=== PATIENT | female | born 1985 | race Two or more races ===

== ENCOUNTER 2018-07-12 08:48 | Emergency (ER) | payer MEDICAID ==
[~2018-07-12] VITALS: Ht 157.5 cm; Wt 49.9 kg
[~2018-07-12 08:48] MED LIST: LAMO25TA2 PO; PROPANOLOL
[2018-07-12] MEDS ORDERED: LORazepam 2MG/ML-1ML VIAL IV ONE (09:45)
[2018-07-12 09:50] LABS: Basophils # (auto) 0 uL; Basophils % (auto) 0.2 % (0.0-2.0); Eosinophils # (auto) 0.1 uL; Eosinophils % (auto) 2.8 % (0.0-7.0); Hematocrit 37.7 % (36.0-46.0); Hemoglobin 12.7 g/dL (12.2-16.2); Lymphocytes # (auto) 1.3 uL; Lymphocytes % (auto) 24.3 % (10.0-50.0); Mean Corpuscular Hemoglobin 30.9 pg (28.0-32.0); Mean Corpuscular Hgb Conc. 33.6 g/dL (32.0-36.0); Mean Corpuscular Volume 91.9 fL (80.0-100.0); Monocytes # (auto) 0.3 uL; Monocytes % (auto) 5.2 % (0.0-12.0); Neutrophils # (auto) 3.6 uL; Neutrophils % (auto) 67.5 % (37.0-80.0); Nucleated Red Blood Cells % 0.1 %; Platelet Count (auto) 236 10^3/uL (140-450); Red Cell Distribution Width 12.4 % (11.8-14.3); White Blood Cell 5.4 10^3/uL (4.4-10.8)
[2018-07-12 12:11] VITALS: BP 128/62
== END 2018-07-12 12:11 | disposition home or self-care (01) ==
LOC: EDBD 08:48 → ER 08:52
DX: G40.909 Epilepsy, unspecified, not intractable, without status epilepticus (principal); Z86.73 Personal history of transient ischemic attack (TIA), and cerebral infarction without residual deficits
CPT/HCPCS: 36415; 70450; 85025; 96374; 99285; J2060

== ENCOUNTER 2018-12-14 20:29 | Emergency (ER) | payer MEDICAID ==
[~2018-12-14] VITALS: Ht 170.2 cm; Wt 49.9 kg
[2018-12-14] MEDS ORDERED: LEVETIRACETAM INJ 1,000 MG in D5W 5% 100 ML IV ONE (22:30)
[2018-12-14 22:47] LABS: Basophils # (auto) 0 uL; Basophils % (auto) 0.2 % (0.0-2.0); Eosinophils # (auto) 0.1 uL; Eosinophils % (auto) 1.2 % (0.0-7.0); Hematocrit 36.6 % (36.0-46.0); Hemoglobin 12.5 g/dL (12.2-16.2); Lymphocytes # (auto) 1.6 uL; Lymphocytes % (auto) 22.3 % (10.0-50.0); Mean Corpuscular Hemoglobin 31.6 pg (28.0-32.0); Mean Corpuscular Hgb Conc. 34.2 g/dL (32.0-36.0); Mean Corpuscular Volume 92.3 fL (80.0-100.0); Monocytes # (auto) 0.4 uL; Neutrophils # (auto) 5.2 uL; Neutrophils % (auto) 70.3 % (37.0-80.0); Platelet Count (auto) 249 10^3/uL (140-450); Red Blood Cells 3.97 10^6/uL (4.0-5.20); Red Cell Distribution Width 12.4 % (11.8-14.3); White Blood Cell 7.4 10^3/uL (4.4-10.8)
[2018-12-14] MEDS ORDERED: LEVETIRACETAM 500 MG/5ML INJ IV ONE (22:56)
[2018-12-14 22:58] LABS: Albumin 3.7 g/dL (3.4-5.0); Calcium 8.3 mg/dL (8.5-10.1)
[2018-12-14 23:01] LABS: Bilirubin, Total 0.2 mg/dL (0.2-1.0); Total Protein 7.5 g/dL (6.4-8.2)
[2018-12-14 23:32] VITALS: BP 138/78
[2018-12-14 23:32] LABS: Urine Bacteria FEW /hpf (None Seen); Urine Blood Negative /uL (Negative); Urine Specific Gravity 1.016 (1.001-1.035); Urine WBC 1 /hpf (0 - 5)
[2018-12-14 23:42] LABS: Alcohol, Urine < 3.0 mg/dL (0-5); Amphetamine Screen, Urine NEGATIVE (NEGATIVE); Barbiturate Scree,Urine NEGATIVE (NEGATIVE); Benzodiazephine Screen, Urine NEGATIVE (NEGATIVE); Cannabinoid Screen, Urine NEGATIVE (NEGATIVE); Cocaine Screen, Urine NEGATIVE (NEGATIVE); Opiate Scree,Urine NEGATIVE (NEGATIVE); Phencyclidine Screen, Urine NEGATIVE (NEGATIVE)
== END 2018-12-15 01:02 | disposition home or self-care (01) ==
LOC: EDBD 20:29 → ER 20:36
DX: G40.909 Epilepsy, unspecified, not intractable, without status epilepticus (principal); Z86.73 Personal history of transient ischemic attack (TIA), and cerebral infarction without residual deficits
CPT/HCPCS: 36415; 70450; 80053; 80307; 81001; 82542; 84702; 85025; 96365; 99284; J1953; J7060

== ENCOUNTER 2019-01-20 21:48 | Emergency (ER) | payer MEDICAID ==
[~2019-01-20] VITALS: Ht 157.5 cm; Wt 54.4 kg
[2019-01-20 22:45] LABS: Basophils # (auto) 0 uL; Basophils % (auto) 0.3 % (0.0-2.0); Eosinophils # (auto) 0.2 uL; Eosinophils % (auto) 2.4 % (0.0-7.0); Hematocrit 40.2 % (36.0-46.0); Hemoglobin 13.7 g/dL (12.2-16.2); Lymphocytes # (auto) 1.7 uL; Lymphocytes % (auto) 27.3 % (10.0-50.0); Mean Corpuscular Hemoglobin 31.6 pg (28.0-32.0); Mean Corpuscular Hgb Conc. 34.1 g/dL (32.0-36.0); Mean Corpuscular Volume 92.8 fL (80.0-100.0); Monocytes # (auto) 0.4 uL; Monocytes % (auto) 6.9 % (0.0-12.0); Neutrophils % (auto) 63.1 % (37.0-80.0); Nucleated Red Blood Cells % 0.1 %; Platelet Count (auto) 272 10^3/uL (140-450); Red Blood Cells 4.34 10^6/uL (4.0-5.20); Red Cell Distribution Width 12.4 % (11.8-14.3); White Blood Cell 6.3 10^3/uL (4.4-10.8)
[2019-01-20 23:03] LABS: BUN/Creatinine Ratio 12.9; Calcium 8.6 mg/dL (8.5-10.1); Potassium 3.6 mmol/L (3.5-5.1)
[2019-01-20 23:06] LABS: Bilirubin, Total 0.3 mg/dL (0.2-1.0)
[2019-01-21] VITALS: BP 144/82
== END 2019-01-21 01:03 | disposition left against medical advice (07) ==
LOC: EDBD 21:48 → EDSEX 21:48 → ER 21:52
DX: R56.9 Unspecified convulsions (principal); Z86.73 Personal history of transient ischemic attack (TIA), and cerebral infarction without residual deficits; Z53.29 Procedure and treatment not carried out because of patient's decision for other reasons
CPT/HCPCS: 36415; 80053; 82542; 85025

== ENCOUNTER 2019-08-03 07:38 | Emergency (ER) | payer MEDICAID ==
[~2019-08-03] VITALS: Ht 157.5 cm; Wt 51.7 kg
[2019-08-03 08:50] LABS: Urine Bacteria FEW /hpf (None Seen); Urine Blood Negative /uL (Negative); Urine Hyaline Cast FEW /lpf (0 - 2); Urine Mucus FEW (None Seen); Urine Specific Gravity 1.016 (1.001-1.035); Urine WBC 3 /hpf (0 - 5)
[2019-08-03 09:19] VITALS: BP 91/55
== END 2019-08-03 10:50 | disposition home or self-care (01) ==
LOC: EDBD 07:38 → ER 07:38
DX: G40.909 Epilepsy, unspecified, not intractable, without status epilepticus (principal); R42 Dizziness and giddiness
CPT/HCPCS: 70450; 81001

== ENCOUNTER 2019-09-25 09:08 | Emergency (ER) | payer MEDICAID ==
[~2019-09-25] VITALS: Ht 157.5 cm; Wt 49.9 kg
[2019-09-25] MEDS ORDERED: LEVETIRACETAM INJ 500 MG in D5W 5% 100 ML IV ONE (09:30)
[2019-09-25 09:42] LABS: Basophils # (auto) 0 uL; Basophils % (auto) 0.1 % (0.0-2.0); Eosinophils # (auto) 0.1 uL; Eosinophils % (auto) 1.3 % (0.0-7.0); Hemoglobin 12.9 g/dL (12.2-16.2); Mean Corpuscular Hemoglobin 31.8 pg (28.0-32.0); Mean Corpuscular Volume 93.4 fL (80.0-100.0); Monocytes # (auto) 0.3 uL; Monocytes % (auto) 5.6 % (0.0-12.0); Neutrophils # (auto) 3.4 uL; Platelet Count (auto) 215 10^3/uL (140-450); Red Blood Cells 4.07 10^6/uL (4.0-5.20); Red Cell Distribution Width 12.7 % (11.8-14.3); White Blood Cell 4.7 10^3/uL (4.4-10.8)
[2019-09-25 10:01] LABS: Alanine Aminotransferase 22 U/L (13-56); Albumin 3.7 g/dL (3.4-5.0); Anion Gap 7 (5-15); BUN/Creatinine Ratio 15.9; Blood Urea Nitrogen 13 mg/dL (7-18); Calcium 8.2 mg/dL (8.5-10.1); Carbon Dioxide 21 mmol/L (21-32); Chloride 112 mmol/L (98-107); GFR African American 103 mL/min; GFR Non-African American 85 mL/min; Glucose 88 mg/dL (74-106); Potassium 4.1 mmol/L (3.5-5.1); Sodium 140 mmol/L (136-145)
[2019-09-25 10:06] LABS: Alkaline Phosphatase 69 U/L (45-117); Aspartate Aminotransferase 9 U/L (15-37); Bilirubin, Total 0.4 mg/dL (0.2-1.0); Total Protein 7.5 g/dL (6.4-8.2)
[2019-09-25 10:51] LABS: Urine Bacteria NONE SEEN /hpf (None Seen); Urine Blood Negative /uL (Negative); Urine Mucus FEW (None Seen); Urine Specific Gravity 1.012 (1.001-1.035); Urine WBC 1 /hpf (0 - 5)
[2019-09-25 11:04] LABS: Alcohol, Urine < 3.0 mg/dL (0-5); Amphetamine Screen, Urine NEGATIVE (NEGATIVE); Barbiturate Scree,Urine NEGATIVE (NEGATIVE); Benzodiazephine Screen, Urine POSITIVE (NEGATIVE); Cocaine Screen, Urine NEGATIVE (NEGATIVE); Opiate Scree,Urine NEGATIVE (NEGATIVE); Phencyclidine Screen, Urine NEGATIVE (NEGATIVE)
[2019-09-25 11:12] LABS: Cannabinoid Screen, Urine POSITIVE (NEGATIVE)
[2019-09-25 12:12] VITALS: BP 95/58
== END 2019-09-25 12:16 | disposition home or self-care (01) ==
LOC: EDBD 09:08 → ER 09:08
DX: R56.9 Unspecified convulsions (principal); F12.10 Cannabis abuse, uncomplicated; G43.909 Migraine, unspecified, not intractable, without status migrainosus; G89.29 Other chronic pain; M54.9 Dorsalgia, unspecified
CPT/HCPCS: 36415; 70450; 80053; 80307; 81001; 84484; 85025; 96365; 99284; J1953; J7060

== ENCOUNTER 2019-10-12 09:25 | Emergency (ER) | payer MEDICAID ==
[~2019-10-12] VITALS: Ht 157.5 cm; Wt 52.2 kg
[2019-10-12] MEDS ORDERED: LIDOCAINE 1% (LOCAL ANESTH.) PF 5ml SDV ID ONE (10:00)
[2019-10-12] MEDS ORDERED: NEOMYCIN-BACITRACIN-POLYM UNITDOSE PKG TOP OINT TOP ONE (10:00)
[2019-10-12 10:21] LABS: Basophils # (auto) 0 uL; Basophils % (auto) 0.3 % (0.0-2.0); Eosinophils # (auto) 0 uL; Eosinophils % (auto) 0.6 % (0.0-7.0); Hematocrit 37.8 % (36.0-46.0); Hemoglobin 12.9 g/dL (12.2-16.2); Lymphocytes # (auto) 1.2 uL; Lymphocytes % (auto) 14.6 % (10.0-50.0); Mean Corpuscular Hgb Conc. 34.2 g/dL (32.0-36.0); Mean Corpuscular Volume 93.3 fL (80.0-100.0); Monocytes # (auto) 0.4 uL; Monocytes % (auto) 5.3 % (0.0-12.0); Neutrophils # (auto) 6.6 uL; Neutrophils % (auto) 79.2 % (37.0-80.0); Nucleated Red Blood Cells % 0.1 %; Platelet Count (auto) 269 10^3/uL (140-450); Red Blood Cells 4.05 10^6/uL (4.0-5.20); Red Cell Distribution Width 12.6 % (11.8-14.3); White Blood Cell 8.3 10^3/uL (4.4-10.8)
[2019-10-12 10:37] LABS: Albumin 3.8 g/dL (3.4-5.0); Calcium 8.8 mg/dL (8.5-10.1); Potassium 4.1 mmol/L (3.5-5.1)
[2019-10-12 10:41] LABS: BUN/Creatinine Ratio 13.6; Bilirubin, Total 0.4 mg/dL (0.2-1.0); Total Protein 7.5 g/dL (6.4-8.2)
[2019-10-12] MEDS ORDERED: LIDOCAINE 1% HCL (LOCAL ANESTH.) INJ 20ML MDV ONE (10:49)
[2019-10-12 13:52] LABS: Alcohol, Urine < 3.0 mg/dL (0-5); Amphetamine Screen, Urine NEGATIVE (NEGATIVE); Cannabinoid Screen, Urine POSITIVE (NEGATIVE)
[2019-10-12 13:55] LABS: Barbiturate Scree,Urine NEGATIVE (NEGATIVE); Benzodiazephine Screen, Urine POSITIVE (NEGATIVE); Cocaine Screen, Urine NEGATIVE (NEGATIVE); Opiate Scree,Urine NEGATIVE (NEGATIVE); Phencyclidine Screen, Urine NEGATIVE (NEGATIVE)
[2019-10-12 14:00] VITALS: BP 97/62
== END 2019-10-12 14:12 | disposition home or self-care (01) ==
LOC: EDBD 09:25 → ER 09:30
DX: S01.81XA Laceration without foreign body of other part of head, initial encounter (principal); S09.8XXA Other specified injuries of head, initial encounter; R56.9 Unspecified convulsions; M54.2 Cervicalgia; Z86.73 Personal history of transient ischemic attack (TIA), and cerebral infarction without residual deficits; X58.XXXA Exposure to other specified factors, initial encounter; Y93.89 Activity, other specified; Y92.89 Other specified places as the place of occurrence of the external cause; Y99.8 Other external cause status
CPT/HCPCS: 12013; 36415; 70450; 72125; 80053; 80307; 84702; 85025; 99284; J2001

== ENCOUNTER 2019-10-17 12:46 | Emergency (ER) | payer MEDICAID ==
[~2019-10-17] VITALS: Ht 157.5 cm; Wt 52.2 kg
[2019-10-17 16:00] VITALS: BP 133/77
[2019-10-17] MEDS ORDERED: HYDROcodone-ACET 10/325MG TAB PO ONE (16:00)
[2019-10-17] MEDS ORDERED: NEOMYCIN-BACITRACIN-POLYM UNITDOSE PKG TOP OINT TOP ONE (16:21)
[2019-10-17] MEDS ORDERED: NEOMYCIN-BACITRACIN-POLYM 15GM TOP OINT TOP SCH (22:00)
== END 2019-10-17 16:47 | disposition home or self-care (01) ==
LOC: EDBD 12:46 → ER 12:46
DX: R51 Headache (principal); F07.81 Postconcussional syndrome
CPT/HCPCS: 70450

== ENCOUNTER 2019-10-24 13:51 | Emergency (ER) | payer MEDICAID ==
[~2019-10-24] VITALS: Ht 157.5 cm; Wt 50.8 kg
[2019-10-24 14:00] VITALS: BP 95/60
[2019-10-24] MEDS ORDERED: BACITRACIN TOP OINT 1 UD PKG TOP ONE (17:45)
== END 2019-10-24 17:59 | disposition home or self-care (01) ==
LOC: ER 13:57
DX: L03.211 Cellulitis of face (principal); L02.01 Cutaneous abscess of face

== ENCOUNTER → 2019-10-24 | Emergency (ER) | payer MEDICAID | END | disposition left against medical advice (07) | LOC: ER 23:07 | DX: Z48.01 Encounter for change or removal of surgical wound dressing (principal); Z53.21 Procedure and treatment not carried out due to patient leaving prior to being seen by health care provider ==

== ENCOUNTER 2021-04-23 11:33 | Emergency (ER) | payer MEDICAID ==
[~2021-04-23] VITALS: Ht 157.5 cm; Wt 45.4 kg
[2021-04-23] MEDS ORDERED: HYDROcodone-ACET 5/325MG TAB PO ONE (13:15)
[2021-04-23 16:41] LABS: Basophils # (auto) 0 10 ^3/uL (0-0.2); Basophils % (auto) 0.2 % (0.0-2.0); Eosinophils # (auto) 0 10 ^3/uL (0-0.8); Eosinophils % (auto) 0.6 % (0.0-7.0); Hemoglobin 12.6 g/dL (12.2-16.2); Lymphocytes # (auto) 1.6 10 ^3/uL (0.4-5.4); Mean Corpuscular Hgb Conc. 34.1 g/dL (32.0-36.0); Mean Corpuscular Volume 93.8 fL (80.0-100.0); Monocytes # (auto) 0.2 10 ^3/uL (0-1.3); Monocytes % (auto) 3.5 % (0.0-12.0); Neutrophils # (auto) 4.8 10 ^3/uL (1.6-8.6); Neutrophils % (auto) 71.7 % (37.0-80.0); Nucleated Red Blood Cells % 0.1 %; Red Blood Cells 3.94 10^6/uL (4.0-5.20); Red Cell Distribution Width 12.4 % (11.8-14.3); White Blood Cell 6.8 10^3/uL (4.4-10.8)
[2021-04-23 16:44] LABS: Acetaminophen < 2.0 ug/mL (10-30); Albumin 3.7 g/dL (3.4-5.0); Calcium 8.4 mg/dL (8.5-10.1); Potassium 3.8 mmol/L (3.5-5.1); Salicylate < 1.7 mg/dL (2.8-20.0)
[2021-04-23 16:48] LABS: BUN/Creatinine Ratio 14.8; Bilirubin, Total 0.5 mg/dL (0.2-1.0); Total Protein 7.2 g/dL (6.4-8.2)
[2021-04-23 18:56] LABS: Urine Amorphous Crystal MANY /hpf (None Seen); Urine Bacteria MOD /hpf (None Seen); Urine Blood Negative /uL (Negative); Urine Mucus FEW (None Seen); Urine Specific Gravity 1.017 (1.001-1.035); Urine WBC 13 /hpf (0 - 5)
[2021-04-23 19:09] LABS: Alcohol, Urine < 3.0 mg/dL (0-10); Amphetamine Screen, Urine NEGATIVE (NEGATIVE); Barbiturate Scree,Urine NEGATIVE (NEGATIVE); Benzodiazephine Screen, Urine POSITIVE (NEGATIVE); Cannabinoid Screen, Urine POSITIVE (NEGATIVE)
[2021-04-23 19:17] LABS: Cocaine Screen, Urine NEGATIVE (NEGATIVE); Opiate Scree,Urine POSITIVE (NEGATIVE); Phencyclidine Screen, Urine NEGATIVE (NEGATIVE)
[2021-04-23] MEDS: TOPIRAMATE 100 MG TAB PO SCH (22:06)
[2021-04-23] MEDS: HYDROcodone-ACET 10/325MG TAB PO PRN (22:06)
[2021-04-24] MEDS: FYCOMPA PO SCH (10:07)
[2021-04-24] MEDS: ONFI 20 MG PO SCH ×2 (10:07→22:04)
[2021-04-24] MEDS: CHOLECALCIFEROL (VITD3) 2,000 UNIT CAP/TAB PO SCH (10:07)
[2021-04-24] MEDS: MAGNESIUM OXIDE 400 MG TAB PO SCH (10:07)
[2021-04-24] MEDS: HYDROcodone-ACET 10/325MG TAB PO PRN (14:30)
[2021-04-24] MEDS ORDERED: TOPIRAMATE 100 MG TAB PO SCH (22:00)
[2021-04-24] MEDS: TOPIRAMATE 100 MG TAB PO SCH (22:05)
[2021-04-25] MEDS: HYDROcodone-ACET 10/325MG TAB PO PRN ×2 (09:35→19:04)
[2021-04-25] MEDS: ONFI 20 MG PO SCH ×2 (11:26→22:28)
[2021-04-25] MEDS: CHOLECALCIFEROL (VITD3) 2,000 UNIT CAP/TAB PO SCH (11:26)
[2021-04-25] MEDS: FYCOMPA PO SCH (11:26)
[2021-04-25] MEDS: MAGNESIUM OXIDE 400 MG TAB PO SCH (11:26)
[2021-04-25] MEDS: TOPIRAMATE 100 MG TAB PO SCH (22:28)
[2021-04-26] MEDS ORDERED: CIPROFLOXACIN HCL 500 MG TAB PO ONE (08:45)
[2021-04-26] MEDS: CHOLECALCIFEROL (VITD3) 2,000 UNIT CAP/TAB PO SCH (08:48)
[2021-04-26] MEDS: MAGNESIUM OXIDE 400 MG TAB PO SCH (08:48)
[2021-04-26] MEDS: FYCOMPA PO SCH (08:48)
[2021-04-26] MEDS: HYDROcodone-ACET 10/325MG TAB PO PRN ×2 (09:07→18:22)
[2021-04-26] MEDS: ONFI 20 MG PO SCH ×2 (11:26→23:22)
[2021-04-26] MEDS ORDERED: HYDROcodone-ACET 10/325MG TAB ONE (18:17)
[2021-04-26] MEDS: TOPIRAMATE 100 MG TAB PO SCH (23:22)
[2021-04-26 23:36] VITALS: BP 97/55
== END 2021-04-27 03:25 | disposition home or self-care (01) ==
LOC: EDBD 11:33 → ER 11:33
DX: F32.9 Major depressive disorder, single episode, unspecified (principal); R45.851 Suicidal ideations; R73.9 Hyperglycemia, unspecified; G89.29 Other chronic pain; M54.9 Dorsalgia, unspecified; Z20.822 Contact with and (suspected) exposure to COVID-19
CPT/HCPCS: 36415; 80053; 80307; 80329; 81001; 83735; 85025; 87426; 99285; C9803; U0003

== ENCOUNTER 2021-11-06 10:27 | Emergency (ER) | payer MEDICAID ==
[~2021-11-06] VITALS: Ht 152.4 cm; Wt 54.4 kg
[2021-11-06] MEDS ORDERED: SODIUM CHLORIDE 0.9% 1,000 ML IV ONE ×2 (10:45→14:30)
[2021-11-06 12:02] LABS: Basophils # (auto) 0 10 ^3/uL (0-0.2); Basophils % (auto) 0.1 % (0.0-2.0); Eosinophils # (auto) 0.1 10 ^3/uL (0-0.8); Eosinophils % (auto) 1.2 % (0.0-7.0); Hematocrit 39.7 % (36.0-46.0); Hemoglobin 13.4 g/dL (12.2-16.2); Lymphocytes # (auto) 1.3 10 ^3/uL (0.4-5.4); Lymphocytes % (auto) 16.3 % (10.0-50.0); Mean Corpuscular Hemoglobin 31.4 pg (28.0-32.0); Mean Corpuscular Hgb Conc. 33.9 g/dL (32.0-36.0); Mean Corpuscular Volume 92.6 fL (80.0-100.0); Monocytes # (auto) 0.3 10 ^3/uL (0-1.3); Monocytes % (auto) 4.5 % (0.0-12.0); Neutrophils % (auto) 77.9 % (37.0-80.0); Red Blood Cells 4.29 10^6/uL (4.0-5.20); Red Cell Distribution Width 11.8 % (11.8-14.3); White Blood Cell 7.7 10^3/uL (4.4-10.8)
[2021-11-06 12:12] LABS: Potassium 3.8 mmol/L (3.5-5.1)
[2021-11-06 12:20] LABS: Albumin 4.2 g/dL (3.4-5.0); BUN/Creatinine Ratio 18.4; Bilirubin, Total 0.4 mg/dL (0.2-1.0); Calcium 8.6 mg/dL (8.5-10.1); Total Protein 7.6 g/dL (6.4-8.2)
[2021-11-06 12:29] LABS: Urine Bacteria FEW /hpf (None Seen); Urine Blood 3+ /uL (Negative); Urine Hyaline Cast FEW /lpf (0 - 2); Urine Specific Gravity 1.018 (1.001-1.035); Urine WBC 7 /hpf (0 - 5)
[2021-11-06] MEDS ORDERED: ACETAMINOPHEN 500 MG TAB PO ONE (14:30)
[2021-11-06 15:10] VITALS: BP 96/50
== END 2021-11-06 15:19 | disposition home or self-care (01) ==
LOC: ER 10:27 → EDUNIT# 10:27 → EDBD 10:27 → ER 15:19
DX: R56.9 Unspecified convulsions (principal); F32.9 Major depressive disorder, single episode, unspecified; F12.10 Cannabis abuse, uncomplicated; Z32.02 Encounter for pregnancy test, result negative
CPT/HCPCS: 36415; 70450; 80053; 81001; 81025; 85025; 96360; 96361; 99285; J7030

== ENCOUNTER 2023-03-02 06:39 | Inpatient (IN) | payer MEDICAID ==
[~2023-03-02] VITALS: Ht 152.4 cm; Wt 62.5 kg
[2023-03-02] MEDS ORDERED: SODIUM CHLORIDE 0.9% 1,000 ML IV ONE ×2 (06:45)
[2023-03-02 07:29] LABS: Basophils # (auto) 0 10 ^3/uL (0-0.2); Basophils % (auto) 0.3 % (0.0-2.0); Eosinophils # (auto) 0.2 10 ^3/uL (0-0.8); Eosinophils % (auto) 3.8 % (0.0-7.0); Hematocrit 37.1 % (36.0-46.0); Hemoglobin 12.9 g/dL (12.2-16.2); Lymphocytes # (auto) 1.8 10 ^3/uL (0.4-5.4); Lymphocytes % (auto) 36.1 % (10.0-50.0); Mean Corpuscular Hemoglobin 32.7 pg (28.0-32.0); Mean Corpuscular Hgb Conc. 34.7 g/dL (32.0-36.0); Mean Corpuscular Volume 94.3 fL (80.0-100.0); Monocytes # (auto) 0.3 10 ^3/uL (0-1.3); Monocytes % (auto) 5.6 % (0.0-12.0); Neutrophils # (auto) 2.7 10 ^3/uL (1.6-8.6); Neutrophils % (auto) 54.2 % (37.0-80.0); Red Blood Cells 3.94 10^6/uL (4.0-5.20); Red Cell Distribution Width 12.2 % (11.8-14.3)
[2023-03-02 07:58] LABS: Albumin 3.4 g/dL (3.4-5.0); Potassium 3.8 mmol/L (3.5-5.1)
[2023-03-02 08:03] LABS: BUN/Creatinine Ratio 17.6 (10.0-20.0); Bilirubin, Total 0.3 mg/dL (0.2-1.0); Total Protein 6.8 g/dL (6.4-8.2)
[2023-03-02] MEDS ORDERED: LORazepam 2MG/ML-1ML VIAL IV ONE (08:30)
[2023-03-02] MEDS ORDERED: LACTATED RINGER'S 1,000 ML IV ONE (11:00)
[2023-03-02] MEDS ORDERED: NITROGLYCERIN 0.4 MG SL TAB SL PRN (11:00)
[2023-03-02] MEDS ORDERED: MORPHINE SULFATE INJ 2 MG/ml SYRG IV PRN (11:00)
[2023-03-02] MEDS ORDERED: ACETAMINOPHEN 325 MG TAB PO PRN (11:00)
[2023-03-02] MEDS ORDERED: BRIV1TAB4 PO (11:15)
[2023-03-02] MEDS ORDERED: CLOB20TA3 PO (11:15)
[2023-03-02] MEDS: HYDROcodone-ACET 5/325MG TAB PO PRN (16:30)
[2023-03-02] MEDS ORDERED: TOPI100T68 PO (19:48)
[2023-03-02] MEDS ORDERED: LORazepam 2MG/ML-1ML VIAL IV PRN (21:45)
[2023-03-02] MEDS ORDERED: BRIVARACETAM 50 MG PO SCH (22:00)
[2023-03-02] MEDS ORDERED: CLOBAZAM 20 MG PO SCH (22:00)
[2023-03-02] MEDS: TOPIRAMATE 100 MG TAB PO SCH (22:09)
[2023-03-03] VITALS (7 sets, daily range): BP systolic 88–149; BP diastolic 54–81
[2023-03-03] MEDS: HYDROcodone-ACET 5/325MG TAB PO PRN ×2 (00:54→14:09)
[2023-03-03] MEDS ORDERED: HYDR-4902 PO (01:05)
[2023-03-03] MEDS ORDERED: FOLI-119 PO (01:05)
[2023-03-03] MEDS ORDERED: MAGN400T40 PO (01:05)
[2023-03-03] MEDS ORDERED: CHOL20TA PO (01:05)
[2023-03-03 01:38] LABS: Urine Amorphous Crystal FEW /hpf (None Seen); Urine Bacteria NONE SEEN /hpf (None Seen); Urine Blood 1+ /uL (Negative); Urine Mucus FEW (None Seen); Urine Specific Gravity 1.014 (1.001-1.035); Urine WBC 8 /hpf (0 - 5)
[2023-03-03 01:53] LABS: Alcohol, Urine < 3.0 mg/dL (0-10); Amphetamine Screen, Urine NEGATIVE (NEGATIVE); Barbiturate Scree,Urine NEGATIVE (NEGATIVE); Benzodiazephine Screen, Urine POSITIVE (NEGATIVE); Cannabinoid Screen, Urine NEGATIVE (NEGATIVE); Cocaine Screen, Urine NEGATIVE (NEGATIVE); Opiate Scree,Urine NEGATIVE (NEGATIVE); Phencyclidine Screen, Urine NEGATIVE (NEGATIVE)
[2023-03-03 06:17] LABS: Basophils # (auto) 0 10 ^3/uL (0-0.2); Basophils % (auto) 0.3 % (0.0-2.0); Eosinophils # (auto) 0.2 10 ^3/uL (0-0.8); Eosinophils % (auto) 3.7 % (0.0-7.0); Hematocrit 34.6 % (36.0-46.0); Hemoglobin 11.8 g/dL (12.2-16.2); Lymphocytes # (auto) 2.6 10 ^3/uL (0.4-5.4); Lymphocytes % (auto) 41.8 % (10.0-50.0); Mean Corpuscular Hemoglobin 32.4 pg (28.0-32.0); Mean Corpuscular Hgb Conc. 34.1 g/dL (32.0-36.0); Mean Corpuscular Volume 94.9 fL (80.0-100.0); Monocytes # (auto) 0.4 10 ^3/uL (0-1.3); Monocytes % (auto) 6.4 % (0.0-12.0); Neutrophils % (auto) 47.8 % (37.0-80.0); Nucleated Red Blood Cells % 0.1 %; Red Blood Cells 3.65 10^6/uL (4.0-5.20); Red Cell Distribution Width 12.3 % (11.8-14.3); White Blood Cell 6.3 10^3/uL (4.4-10.8)
[2023-03-03 06:18] LABS: Albumin 3.3 g/dL (3.4-5.0); Potassium 3.5 mmol/L (3.5-5.1)
[2023-03-03 06:22] LABS: BUN/Creatinine Ratio 20.3 (10.0-20.0); Bilirubin, Total 0.4 mg/dL (0.2-1.0); Total Protein 6.2 g/dL (6.4-8.2)
[2023-03-03] MEDS ORDERED: RIME75TA PO (07:50)
[2023-03-03] MEDS: BRIVARACETAM 50 MG PO SCH ×2 (09:03→20:05)
[2023-03-03] MEDS: CLOBAZAM 20 MG PO SCH ×2 (09:04→20:05)
[2023-03-03] MEDS ORDERED: CLOBAZAM 20 MG PO SCH (10:00)
[2023-03-03] MEDS: TOPIRAMATE 100 MG TAB PO SCH (20:04)
[2023-03-04 05:00] VITALS: BP 90/48
[2023-03-04] MEDS: CLOBAZAM 20 MG PO SCH ×2 (08:29→21:25)
[2023-03-04] MEDS: BRIVARACETAM 50 MG PO SCH ×2 (08:29→21:26)
[2023-03-04 09:00] VITALS: BP 99/94
[2023-03-04 13:00] VITALS: BP 100/61
[2023-03-04 17:00] VITALS: BP 97/51
[2023-03-04] MEDS: HYDROcodone-ACET 5/325MG TAB PO PRN (17:11)
[2023-03-04] MEDS: TOPIRAMATE 100 MG TAB PO SCH (21:25)
[2023-03-05 00:15] VITALS: BP 107/68
[2023-03-05 04:09] VITALS: BP 98/64
[2023-03-05] MEDS: CLOBAZAM 20 MG PO SCH ×2 (08:33→21:33)
[2023-03-05] MEDS: BRIVARACETAM 50 MG PO SCH ×2 (08:34→21:32)
[2023-03-05 09:00] VITALS: BP 97/61
[2023-03-05 13:00] VITALS: BP 99/50
[2023-03-05 16:48] VITALS: BP 98/60
[2023-03-05] MEDS ORDERED: NURTEC 75 MG PO PRN (21:15)
[2023-03-05] MEDS: TOPIRAMATE 100 MG TAB PO SCH (21:32)
[2023-03-05 22:00] VITALS: BP 103/66
[2023-03-06 05:00] VITALS: BP 105/59
[2023-03-06 09:00] VITALS: BP 94/67
[2023-03-06] MEDS: BRIVARACETAM 50 MG PO SCH (09:25)
[2023-03-06] MEDS: CLOBAZAM 20 MG PO SCH (09:27)
[2023-03-06] MEDS ORDERED: MAGNESIUM OXIDE 400 MG TAB PO SCH (10:00)
[2023-03-06 12:43] VITALS: BP 100/76
[2023-03-06 16:18] VITALS: BP 93/66
[2023-03-06 16:43] VITALS: BP 93/66
== END 2023-03-06 17:01 | disposition home or self-care (01) | DRG 53 ==
LOC: EDBD 06:39 → ER 06:39 → TELE 11:11 → TELE-WESTW 22:29
PROVIDERS: ADMIT Nurse Practitioner Family; ATTEND Internal Medicine
DX: G40.409 Other generalized epilepsy and epileptic syndromes, not intractable, without status epilepticus (principal); G43.909 Migraine, unspecified, not intractable, without status migrainosus; G89.29 Other chronic pain; M54.50 Low back pain, unspecified; Z79.899 Other long term (current) drug therapy; Z83.3 Family history of diabetes mellitus; Z98.891 History of uterine scar from previous surgery
CPT/HCPCS: 36415; 70450; 80053; 80307; 81001; 85025; 93005; 96361; 96374; 97116; 97163; 97530; G0378

== ENCOUNTER 2024-02-09 20:05 | Inpatient (IN) | payer MEDICAID ==
[~2024-02-09] VITALS: Ht 160 cm; Wt 63.0 kg
[~2024-02-09 20:05] MED LIST changes: +BRIV1TAB4 PO; +CHOL20TA PO; +CLOB20TA3 PO; +FOLI-119 PO; +HYDR-4902 PO; +MAGN400T40 PO; +RIME75TA PO; +TOPI100T68 PO
[2024-02-09 20:24] VITALS: PULSE 95; RESP 16; O2SAT 99
[2024-02-09] MEDS: levETIRAcetam 1000 mg/100ml 100 ML IV ONE (21:17)
[2024-02-09 21:50] LABS: Basophils # (auto) 0 10 ^3/uL (0-0.2); Basophils % (auto) 0.2 % (0.0-2.0); Eosinophils # (auto) 0.1 10 ^3/uL (0-0.8); Eosinophils % (auto) 0.9 % (0.0-7.0); Hemoglobin 12.3 g/dL (12.2-16.2); Lymphocytes # (auto) 1.6 10 ^3/uL (0.4-5.4); Lymphocytes % (auto) 19.1 % (10.0-50.0); Mean Corpuscular Hemoglobin 32.1 pg (28.0-32.0); Mean Corpuscular Hgb Conc. 34.2 g/dL (32.0-36.0); Monocytes # (auto) 0.6 10 ^3/uL (0-1.3); Monocytes % (auto) 6.8 % (0.0-12.0); Nucleated Red Blood Cells % 0.1 %; Red Blood Cells 3.83 10^6/uL (4.0-5.20); Red Cell Distribution Width 12.6 % (11.8-14.3); White Blood Cell 8.2 10^3/uL (4.4-10.8)
[2024-02-09 22:13] LABS: Alanine Aminotransferase 11 U/L (7-40); Albumin 3.9 g/dL (3.2-4.8); Alkaline Phosphatase 57 U/L (46-116); Anion Gap 6 (5-15); Aspartate Aminotransferase 14 U/L (13-40); BUN/Creatinine Ratio 11.1 (10.0-20.0); Blood Alcohol < 3.0 mg/dL (<10); Blood Urea Nitrogen 8 mg/dL (9-23); Calcium 8.8 mg/dL (8.5-10.1); Carbon Dioxide 24 mmol/L (20-30); Chloride 110 mmol/L (98-107); Glucose 98 mg/dL (74-106); Potassium 3.4 mmol/L (3.5-5.1); Sodium 140 mmol/L (136-145)
[2024-02-09 22:14] LABS: Bilirubin, Total 0.3 mg/dL (0.2-1.0); Total Protein 6.3 g/dL (5.7-8.2)
[2024-02-09] MEDS ORDERED: TEMAZEPAM 15 MG CAP PO PRN (23:15)
[2024-02-09] MEDS ORDERED: LORazepam 2MG/ML-1ML VIAL IV PRN (23:15)
[2024-02-09] MEDS ORDERED: ACETAMINOPHEN 325 MG TAB PO PRN (23:15)
[2024-02-09] MEDS ORDERED: ONDANSETRON HCL 4 MG/2 ML VIAL IV PRN (23:15)
[2024-02-10] MEDS: SODIUM CHLORIDE 0.9% 1,000 ML IV ONE (00:50)
[2024-02-10 02:08] LABS: Amphetamine Screen, Urine Neg (NEGATIVE); Barbiturate Scree,Urine Neg (NEGATIVE); Benzodiazephine Screen, Urine Pos (NEGATIVE); Cocaine Screen, Urine Neg (NEGATIVE); Opiate Scree,Urine Pos (NEGATIVE)
[2024-02-10 02:09] LABS: Cannabinoid Screen, Urine Neg (NEGATIVE); Phencyclidine Screen, Urine Neg (NEGATIVE)
[2024-02-10] MEDS: PHENYLEPHRINE IV 250 ML IV SCH (04:18)
[2024-02-10] MEDS: SODIUM CHLORIDE 0.9% 500 ML IV ONE (06:40)
[2024-02-10 07:30] VITALS: TEMP 97.6
[2024-02-10 08:00] VITALS: PULSE 95; RESP 16; O2SAT 99
[2024-02-10 08:29] LABS: Anion Gap 5 (5-15); Carbon Dioxide 20 mmol/L (20-30); Chloride 117 mmol/L (98-107); Potassium 3.8 mmol/L (3.5-5.1); Sodium 142 mmol/L (136-145)
[2024-02-10 08:30] LABS: Calcium 8.3 mg/dL (8.5-10.1)
[2024-02-10 08:35] LABS: BUN/Creatinine Ratio 11.8 (10.0-20.0); Blood Urea Nitrogen 8 mg/dL (9-23); Glucose 96 mg/dL (74-106); Triglycerides 94 mg/dL (< 150)
[2024-02-10 08:36] LABS: LDL Cholesterol 75 mg/dL (< 100)
[2024-02-10 08:37] LABS: Cholesterol 130 mg/dL (< 200); HDL Cholesterol 43 mg/dL (40-59)
[2024-02-10 08:52] LABS: Basophils # (auto) 0 10 ^3/uL (0-0.2); Basophils % (auto) 0.2 % (0.0-2.0); Eosinophils # (auto) 0 10 ^3/uL (0-0.8); Eosinophils % (auto) 0.5 % (0.0-7.0); Hematocrit 33.7 % (36.0-46.0); Hemoglobin 11.4 g/dL (12.2-16.2); Lymphocytes # (auto) 1.5 10 ^3/uL (0.4-5.4); Lymphocytes % (auto) 17.8 % (10.0-50.0); Mean Corpuscular Hemoglobin 32.5 pg (28.0-32.0); Mean Corpuscular Hgb Conc. 33.8 g/dL (32.0-36.0); Mean Corpuscular Volume 96.3 fL (80.0-100.0); Monocytes # (auto) 0.5 10 ^3/uL (0-1.3); Neutrophils # (auto) 6.5 10 ^3/uL (1.6-8.6); Neutrophils % (auto) 75.5 % (37.0-80.0); Red Cell Distribution Width 12.7 % (11.8-14.3); White Blood Cell 8.6 10^3/uL (4.4-10.8)
[2024-02-10 09:07] LABS: INR 1.08 (0.9-1.15); Partial Thromboplastin Time 27.7 SEC (24.5-34.5); Prothrombin Time 11.4 sec (9.3-11.8)
[2024-02-10 09:26] LABS: CRP High Sensitivity 0.03 mg/dL (<1.0)
[2024-02-10 09:48] LABS: Erythrocyte Sedimentation Rate 2 mm/hr (0-20)
[2024-02-10] MEDS ORDERED: BRIVARACETAM 50 MG PO SCH (10:00)
[2024-02-10] MEDS: lamoTRIgine 25 MG TAB PO SCH (10:29)
[2024-02-10] MEDS: TOPIRAMATE 100 MG TAB PO SCH (10:29)
[2024-02-10 10:48] LABS: Urine Bacteria None Seen /hpf (None Seen); Urine WBC None Seen /hpf (0 - 5)
[2024-02-10 11:02] LABS: Urine Blood Negative /uL (Negative); Urine Clarity Clear (Clear); Urine Protein, UAD Negative (Negative); Urine Specific Gravity 1.008 (1.001-1.035); Urine Urobilinogen Normal (Negative)
[2024-02-10 11:04] LABS: Urine Color Yellow (Yellow)
[2024-02-10 12:00] VITALS: BP 103/60; PULSE 76; RESP 15; O2SAT 99
[2024-02-10] MEDS: KETOROLAC TROMETH 30 MG/ML 1ML VIAL IV PRN (12:23)
[2024-02-10 12:36] LABS: Folate (Folic Acid) 34.26 ng/mL (>5.38)
[2024-02-10 13:57] LABS: Free T3 2.69 pg/mL (2.3-4.2); Free T4 (Free Thyroxine) 0.96 ng/dL (0.89-1.76)
[2024-02-10] MEDS ORDERED: BRIVIACT 75 MG PO SCH (22:00)
== END 2024-02-10 13:07 | disposition left against medical advice (07) | DRG 53 ==
LOC: ER 20:05 → EDBD 20:05 → OVERFLOW 23:21
PROVIDERS: ADMIT Internal Medicine; ATTEND Neuromusculoskeletal Medicine & OMM
DX: G40.401 Other generalized epilepsy and epileptic syndromes, not intractable, with status epilepticus (principal); I95.9 Hypotension, unspecified; G93.0 Cerebral cysts; F32.A Depression, unspecified; F17.200 Nicotine dependence, unspecified, uncomplicated; G43.909 Migraine, unspecified, not intractable, without status migrainosus; Z53.29 Procedure and treatment not carried out because of patient's decision for other reasons; M50.30 Other cervical disc degeneration, unspecified cervical region; R00.1 Bradycardia, unspecified; Z83.3 Family history of diabetes mellitus; Z79.899 Other long term (current) drug therapy
CPT/HCPCS: 36415; 70450; 71045; 72125; 80048; 80053; 80061; 80307; 80320; 81001; 82550; 82607; 82746; 83036; 83735; 83880; 84439; 84443; 84481; 85025; 85610; 85652; 85730; 86141; 93005; 93306; G0378; J1885

== ENCOUNTER 2025-03-06 11:09 | Inpatient (IN) | payer MEDICAID ==
[~2025-03-06] VITALS: Ht 152.4 cm; Wt 63.9 kg
--- NOTE | 2025-03-06 11:39 | ED.PDOC ---
History of Present Illness HPI Comments 39 y/o F, with PMHx of seizures, CHRISTINE, presents to the ED for CC of headache. EMS reports, patient is coming from home where she complains of a generalized headache x1week. Patient relays, she has PMHx of seizures and is complaint with Brivaracetam and Clobazam medications. Patient comments, her last seizure to have been on 02/17/25. Patient denies dizziness, nausea, or vomiting. No other symptoms or modifying factors present at this time. Time Seen by MD: 11:20 Primary Care Provider: ANTHONY Allergies: Coded Allergies: NO KNOWN ALLERGIES (Unverified , 05/29/14) Home Meds Reported Medications Rimegepant Sulfate (Nurtec) 75 Mg Tab, 75 MG PO DAILY, TAB 03/03/23 Hydrocodone-Acetaminophen (Hydrocodone Bitartrate/AC 5-325 mg) 1 Tab Tab, 1 TAB PO Q8HR, TAB 03/03/23 Cholecalciferol (Vitamin D3) 20 Mcg Tab, 50 MCG PO DAILY, TAB 03/03/23 Magnesium Oxide (MAGNESIUM OXIDE) 400 Mg Tab, 1 TAB PO DAILY, #30 TAB 5 Refills 03/03/23 Folic Acid (Folic Acid) 1 Mg Tab, 1 MG PO DAILY for 30 Days, MG 03/03/23 Topiramate (Topiramate) 100 Mg Tab, 100 MG PO HS for 30 Days, MG 03/02/23 Clobazam (Clobazam) 20 Mg Tab, 1 TAB PO DAILY 03/02/23 Brivaracetam (Briviact) 50 Mg Tab, 1 TAB PO BID 03/02/23 [Propanolol] No Conflict Check 05/29/14 Lamotrigine (Lamictal) 25 Mg Tab, 1 TAB PO BID, #60 TAB 1 Refill 05/29/14 Information Source: Patient, Emergency Med Personnel Mode of Arrival: EMS Severity: Moderate Timing: Weeks Duration: Since onset Prehospital treatment: None Past Medical History PAST MEDICAL HISTORY: Depression, Seizures 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 History Family History Family History: No family hx of Cancer, No family hx of DM, No family hx of Heart luis Social History Smoker: Non-Smoker Alcohol: Occasionally Drugs: Marijuana Lives In: Home Constitutional: denies: chills, diaphoresis, fatigue, fever, malaise, sweats, weakness, others EENTM: denies: blurred vision, double vision, ear bleeding, ear discharge, ear drainage, ear pain, ear ringing, eye pain, eye redness, hearing loss, mouth pain, mouth swelling, nasal discharge, nose bleeding, nose congestion, nose pain, photophobia, tearing, throat pain, throat swelling, voice changes, others Respiratory: denies: cough, hemoptysis, orthopnea, SOB at rest, shortness of breath, SOB with excertion, stridor, wheezing, others Cardiovascular: denies: chest pain, dizzy spells, diaphoresis, Dyspnea on exertion, edema, irregular heart beat, left arm pain, lightheadedness, palpitations, PND, syncope, others Gastrointestinal: denies: abdomen distended, abdominal pain, blood streaked bowels, constipated, diarrhea, dysphagia, difficulty swallowing, hematemesis, melena, nausea, poor appetite, poor fluid intake, rectal bleeding, rectal pain, vomiting, others Genitourinary: denies: abnormal vagina bleeding, burning, dyspareunia, dysuria, flank pain, frequency, hematuria, incontinence, pain, , vagina discharge, urgency, others Neurological: reports: headache; denies: dizziness, fainting, left sided numbness, left sided weakness, numbness, paresthesia, pre-existing deficit, right sided numbness, right sided weakness, seizure, speech problems, tingling, tremors, weakness, others Musculoskeletal: denies: back pain, gout, joint pain, joint swelling, muscle pain, muscle stiffness, neck pain, others Integumetry: denies: bruises, change in color, change in hair/nails, dryness, laceration, lesions, lumps, rash, wounds, others Allergic/Immunocompromised: denies: Difficulty Healing, Frequent Infections, Hives, Itching, others Hematologic/Lymphatic: denies: anemia, blood clots, easy bleeding, easy bruising, swollen glands, others Endocrine: denies: excessive hunger, excessive sweating, excessive thirst, excessive urination, flushing, intolerance to cold, intolerance to heat, unexplained weight gain, unexplained weight loss, others Psychiatric: denies: anxiety, bipolar disorder, depression, hopeless, panic disorder, schizophrenia, sleepless, suicidal, others All Other Systems: Reviewed and Negative Physical Exam General Appearance: Moderate Distress HEENT: Normal ENT Inspection, Pharynx Normal, TMs Normal Neck: Full Range of Motion, Non-Tender, Normal, Normal Inspection Respiratory: Chest Non-Tender, Lungs Clear, No Accessory Muscle Use, No Respiratory Distress, Normal Breath Sounds Cardiovascular: No Edema, No JVD, No Murmur, No Gallop, Normal Peripheral Pulses, Regular Rate/Rhythm Breast Exam: Deferred Gastrointestinal: No Organomegaly, Non Tender, No Pulsatile Mass, Normal Bowel Sounds, Soft Genitalia: Deferred Pelvic: Deferred Rectal: Deferred Extremities: No calf tenderness, Normal capillary refill, Normal inspection, Normal range of motion, Non-tender, No pedal edema Musculoskeletal : Apperance: Normal Neurologic: Alert, shellfish shucker II-XII nml as Tested, No Motor Deficits, Normal Affect, Normal Mood, No Sensory Deficits Cerebellar Function: NOT DONE Reflexes: NOT DONE Skin: Dry, Normal Color, Warm Peripheral Pulses: 3+ Radial (R), 3+ Radial (L) Lymphatic: No Adenopathy Was a procedure done? Was a procedure done?: No Differential Dx Considerations may include: MIGRAINE, GENERALIZED HEADACHE, ELECTROLYTE IMBALANCE X-Ray, Labs, Meds, VS Vital Signs Date Time Temp Pulse Resp B/P (MAP) Pulse Ox O2 Delivery O2 Flow Rate FiO2 03/06/25 12:25 97.0 54 15 99/68 (78) 99 97.0 03/06/25 11:31 98.4 65 18 122/86 (98) 97 98.4 Lab Test 03/06/25 11:45 Range/Units White Blood Count 5.7 4.4-10.8 10^3/uL Red Blood Count 4.40 4.0-5.20 10^6/uL Hemoglobin 14.2 12.2-16.2 g/dL Hematocrit 40.8 36.0-46.0 % Mean Corpuscular Volume 92.7 80.0-100.0 fL Mean Corpuscular Hemoglobin 32.3 H 28.0-32.0 pg Mean Corpuscular Hemoglobin Concent 34.8 32.0-36.0 g/dL Red Cell Distribution Width 12.6 11.8-14.3 % Platelet Count 233 140-450 10^3/uL Mean Platelet Volume 7.5 6.9-10.8 fL Neutrophils (%) (Auto) 46.8 37.0-80.0 % Lymphocytes (%) (Auto) 42.1 10.0-50.0 % Monocytes (%) (Auto) 8.1 0.0-12.0 % Eosinophils (%) (Auto) 2.6 0.0-7.0 % Basophils (%) (Auto) 0.4 0.0-2.0 % Neutrophils # (Auto) 2.7 1.6-8.6 10 ^3/uL Lymphocytes # (Auto) 2.4 0.4-5.4 10 ^3/uL Monocytes # (Auto) 0.5 0-1.3 10 ^3/uL Eosinophils # (Auto) 0.1 0-0.8 10 ^3/uL Basophils # (Auto) 0 0-0.2 10 ^3/uL Nucleated Red Blood Cells 0.6 % Sodium Level 140 136-145 mmol/L Potassium Level 3.9 3.5-5.1 mmol/L Chloride Level 108 H 98-107 mmol/L Carbon Dioxide Level 25 20-31 mmol/L Anion Gap 7 5-15 Blood Urea Nitrogen 7 L 9-23 mg/dL Creatinine 0.76 0.550-1.02 mg/dL Glomerular Filtration Rate Calc 103 >90 mL/min BUN/Creatinine Ratio 9.2 L 10.0-20.0 Serum Glucose 88 74-106 mg/dL Calcium Level 9.5 8.7-10.4 mg/dL Current Medications Medications (Trade) Dose Ordered Sig/Marin Route Start Time Stop Time Status Last Admin Sodium Chloride 1,000 ml @ 1,000 mls/hr Q1H ONCE IV 03/06/25 11:30 03/06/25 12:29 DC 03/06/25 12:15 [place] [id number] Ph: [phone] DIAGNOSTIC IMAGING Diagnostic Imaging Report : [id number] Signed PATIENT: SUSANA BRAVO ACCT: [id number] UNIT: [id number] : 1985 LOC: ER ROOM / BED: / AGE / SEX: 39 / F ADM STATUS: REG ER SERVICE 1136 ORDERING PHYSICIAN: PARKER SLAUGHTER MD PROCEDURE(s): HWOCT - HEAD WITHOUT CONTRAST REASON: headache ORDER NUMBER(s): [id number], ACCESSION NUMBER(s): [id number] CLINICAL INFORMATION: 39 years old, Female; headache. TECHNIQUE: Axial imaging was obtained through the brain without contrast. Coronal and sagittal reformatted images were obtained, reviewed, and stored. Images were reviewed in brain and bone windows. All CT scans at this medical facility are performed using dose modulation techniques as appropriate to a per formed exam including the following: Automated exposure control was utilized; adjustment of the MA and/or KV according to patient size; and use of iterative reconstruction technique. CTDIvol = 60.67 mGy DLP = 1072.94 mGy-cm COMPARISON: CT HEAD WITHOUT CONTRAST on DOS: 02/09/24, CT HEAD WITHOUT CONTRAST on DOS: 03/02/23, HEAD WITHOUT CONTRAST on DOS: 11/06/21 FINDINGS: There is no acute intracranial hemorrhage. No midline shift. Minimal change in appearance of the previously seen arachnoid cyst in the anterior aspect of the left middle cranial fossa measuring up to 1.6 x 3.0 cm, with associated mass effect on the left temporal lobe. Grossly stable lucency in the left basal ganglia, likely chronic lacunar infarct. The ventricles and sulci are within normal limits in size for age. Basal cisterns are patent. The calvarium is unremarkable. Paranasal sinuses and mastoid air cells are clear. IMPRESSION: 1. No CT evidence of acute intracranial abnormality. 2. Minimal change in the left middle cranial fossa arachnoid cyst. 3. Additional nonacute findings as detailed above. ATED BY: WINSTON MUNOZ DO DICTATED DATE/TIME: 03/06/251218 SIGNED BY: WINSTON MUNOZ DO SIGNED DATE/TIME: 03/06/251218 CC: Patient alert. Complaining of headache. History of seizure. Vitals stable. Light does bother her. She does state that she has been taking her seizure medication. Establish intravenous access. Was given fluids. Was given morphine. Was given Zofran. Neurology consultation. Continue monitoring. Time of 1ST Reevaluation: 11:50 Reevaluation 1ST: Unchanged Patient Education/Counseling: Diagnosis, Treatment Family Education/Counseling: No Family Present Departure 1 Departure Time of Disposition: 11:44 Impression: Primary Impression: Severe headache Additional Impression: Seizure Disposition: ADMITTED INPATIENT Admit to: Med Surg Condition: Guarded Critical Care Note Critical Care Time?: No Stability Stability form required: No Heart Score Heart Score: Heart Score Response (Comments) Value History N/A 0 EKG N/A 0 Age N/A 0 Risk Factors N/A 0 Troponin N/A 0 Total 0 I personally scribed for PARKER SLAUGHTER MD ([email or web address]) on 03/06/25 at 11:39. Electronically submitted by Pamela Acosta ([email or web address]). I personally scribed for PARKER SLAUGHTER MD ([email or web address]) on 03/06/25 at 12:53. Electronically submitted by Pamela Acosta ([email or web address]). PARKER SLAUGHTER MD March 06, 2025 11:39
[2025-03-06 12:05] LABS: Basophils # (auto) 0 10 ^3/uL (0-0.2); Basophils % (auto) 0.4 % (0.0-2.0); Eosinophils # (auto) 0.1 10 ^3/uL (0-0.8); Eosinophils % (auto) 2.6 % (0.0-7.0); Hematocrit 40.8 % (36.0-46.0); Hemoglobin 14.2 g/dL (12.2-16.2); Lymphocytes # (auto) 2.4 10 ^3/uL (0.4-5.4); Lymphocytes % (auto) 42.1 % (10.0-50.0); Mean Corpuscular Hemoglobin 32.3 pg (28.0-32.0); Mean Corpuscular Hgb Conc. 34.8 g/dL (32.0-36.0); Mean Corpuscular Volume 92.7 fL (80.0-100.0); Monocytes # (auto) 0.5 10 ^3/uL (0-1.3); Monocytes % (auto) 8.1 % (0.0-12.0); Neutrophils # (auto) 2.7 10 ^3/uL (1.6-8.6); Neutrophils % (auto) 46.8 % (37.0-80.0); Nucleated Red Blood Cells % 0.6 %; Platelet Count (auto) 233 10^3/uL (140-450); Red Cell Distribution Width 12.6 % (11.8-14.3); White Blood Cell 5.7 10^3/uL (4.4-10.8)
[2025-03-06 12:07] LABS: Potassium 3.9 mmol/L (3.5-5.1); Sodium 140 mmol/L (136-145)
[2025-03-06 12:08] LABS: Anion Gap 7 (5-15); Calcium 9.5 mg/dL (8.7-10.4); Carbon Dioxide 25 mmol/L (20-31); Chloride 108 mmol/L (98-107)
[2025-03-06 12:13] LABS: BUN/Creatinine Ratio 9.2 (10.0-20.0); Glucose 88 mg/dL (74-106)
[2025-03-06] MEDS: SODIUM CHLORIDE 0.9% 1,000 ML IV ONE (12:15)
[2025-03-06 12:17] LABS: Blood Urea Nitrogen 7 mg/dL (9-23)
--- NOTE | 2025-03-06 12:21 | DVH ---
CLINICAL INFORMATION: 39 years old, Female; headache. TECHNIQUE: Axial imaging was obtained through the brain without contrast. Coronal and sagittal reform atted images were obtained, reviewed, and stored. Images were reviewed in brain and bone windows. Al l CT scans at this medical facility are performed using dose modulation techniques as appropriate to a performed exam including the following: Automated exposure control was utilized; adjustment of the MA and/or KV according to patient size; and use of iterative reconstruction technique. CTDIvol = 60.6 7 mGy DLP = 1072.94 mGy-cm COMPARISON: CT HEAD WITHOUT CONTRAST on DOS: 02/09/24, CT HEAD WITHOUT CONTRAST on DOS: 03/02/23, HEAD W ITHOUT CONTRAST on DOS: 11/06/21 FINDINGS: There is no acute intracranial hemorrhage. No midline shift. Minimal change in appearance of the previously seen arachnoid cyst in the anterior aspect of the left middle cranial fossa measuri ng up to 1.6 x 3.0 cm, with associated mass effect on the left temporal lobe. Grossly stable lucency in the left basal ganglia, likely chronic lacunar infarct. The ventricles and sulci are within normal limits in size for age. Basal cisterns are patent. The calvarium is unremarkable. Paranasal sinuses and mastoid air cells are clear. IMPRESSION: 1. No CT evidence of acute intracranial abnormality. 2. Minimal change in the left middle cranial fossa arachnoid cyst. 3. Additional nonacute findings as detailed above.
--- NOTE | 2025-03-06 13:24 | DVHHP2 ---
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 Patient states she had some vomiting nausea with the pain is like a throbbing pain in the feels like the head is going to explode she denies any fever no recent fall or trauma she does state she had some dizziness. It appears patient was seen here February 22 for acute breakthrough seizure and she has been she left AMA. Patient states she has been taking her meds for her seizures no recent seizure no chest pain when evaluating patient's labs and imaging looks like normal saline was given CBC was unremarkable BNP unremarkable CT scan of the brain shows no change in his arachnoid cyst otherwise unremarkable. With these findings we will admit for pain management for acute migraine headache Past Medical History See HPI above Past Surgical History See HPI above Family History Reviewed, non-contributory to the management of this case. Past Social History The patient lives at home, denies smoking, alcohol or illicit drugs abuse. Review of Systems Constitutional: No: Fever, Chills, Sweats, Weakness, Malaise, Other Eyes: No: Pain, Vision change, Conjunctivae inflammation, Eyelid inflammation, Other, Redness ENT: No: Ear pain, Ear discharge, Nose pain, Nose discharge, Nose congestion, Mouth pain, Mouth swelling, Throat pain, Throat swelling, Other Respiratory: No: Cough, Dry, Shortness of breath, SOB with excertion, Wheezing, Hemoptysis, Pleuritic Pain, Sputum, Wheezing, Other Cardiovascular: No: Chest Pain, Palpitations, Orthopnea, Paroxysmal Noc. Dyspnea, Edema, Lt Headedness, Other Gastrointestinal: Nausea, Vomiting; No: Abdominal Pain, Diarrhea, Constipation, Melena, Hematochezia, Other Genitourinary: No Dysuria, No Frequency, No Incontinence, No Hematuria, No Retention, No Other Musculoskeletal: No: other, neck pain, shoulder pain, arm pain, back pain, hand pain, leg pain, foot pain Skin: No: Rash, Lesions, Jaundice, Bruising, Other Neurological: Other (Headache wearing dark glasses on my exam); No: Weakness, Numbness, Incoordination, Change in speech, Confusion, Seizures Allergies: Coded Allergies: NO KNOWN ALLERGIES (Unverified , 05/29/14) Exam Vital Signs Vital Signs Date Time Temp Pulse Resp B/P (MAP) Pulse Ox O2 Delivery O2 Flow Rate FiO2 03/06/25 12:25 97.0 54 15 99/68 (78) 99 97.0 General Appearance: Alert, Oriented X3, Cooperative, No acute distress HEENT: Atraumatic, PERRLA, EOMI, Mucous membr. moist/pink, Other (Wearing dark glasses on exam) Respiratory: Clear to auscultation, Normal air movement Cardiovascular: Regular rate, Normal S1, Normal S2, No murmurs Abdominal: Normal bowel sounds, Soft, No tenderness, No hepatospenomegaly, No masses Extremities: No clubbing, No cyanosis, No edema, Normal pulses, No tenderness/swelling Skin: No rashes, No breakdown, No significant lesion Neuro: Normal gait, Normal speech, Strength at 5/5 X4 ext, Normal tone, Cranial nerves 3-12 NL Psych/Mental Status: Mental status NL, Mood NL Labs/Xrays CT scan of the brain shows no changes from last CT with the arachnoid cyst otherwise no acute findings I reviewed labs, imaging CT scan abdomen pelvis, EKG and all diagnostic studies on this patient from ED records and the medical chart Labs Test 03/06/25 11:45 Range/Units White Blood Count 5.7 4.4-10.8 10^3/uL Red Blood Count 4.40 4.0-5.20 10^6/uL Hemoglobin 14.2 12.2-16.2 g/dL Hematocrit 40.8 36.0-46.0 % Mean Corpuscular Volume 92.7 80.0-100.0 fL Mean Corpuscular Hemoglobin 32.3 H 28.0-32.0 pg Mean Corpuscular Hemoglobin Concent 34.8 32.0-36.0 g/dL Red Cell Distribution Width 12.6 11.8-14.3 % Platelet Count 233 140-450 10^3/uL Mean Platelet Volume 7.5 6.9-10.8 fL Neutrophils (%) (Auto) 46.8 37.0-80.0 % Lymphocytes (%) (Auto) 42.1 10.0-50.0 % Monocytes (%) (Auto) 8.1 0.0-12.0 % Eosinophils (%) (Auto) 2.6 0.0-7.0 % Basophils (%) (Auto) 0.4 0.0-2.0 % Neutrophils # (Auto) 2.7 1.6-8.6 10 ^3/uL Lymphocytes # (Auto) 2.4 0.4-5.4 10 ^3/uL Monocytes # (Auto) 0.5 0-1.3 10 ^3/uL Eosinophils # (Auto) 0.1 0-0.8 10 ^3/uL Basophils # (Auto) 0 0-0.2 10 ^3/uL Nucleated Red Blood Cells 0.6 % Sodium Level 140 136-145 mmol/L Potassium Level 3.9 3.5-5.1 mmol/L Chloride Level 108 H 98-107 mmol/L Carbon Dioxide Level 25 20-31 mmol/L Anion Gap 7 5-15 Blood Urea Nitrogen 7 L 9-23 mg/dL Creatinine 0.76 0.550-1.02 mg/dL Glomerular Filtration Rate Calc 103 >90 mL/min BUN/Creatinine Ratio 9.2 L 10.0-20.0 Serum Glucose 88 74-106 mg/dL Calcium Level 9.5 8.7-10.4 mg/dL Assessment/Plan Assessment/Plan acute intractable headache ct scan no acute findings no change from last ct scan ordered morphine as needed for pain ordered iv hydration for now cont home medication chronic problems seizures last one 02/22/25 cont home medication seizure precautions depression araconid cyst migraine sinus jose guadalupe pilosebacious cyst on left thigh and under arm fen/ppx diet ivf for now no gi ppx since no hx of gerds or gi bleed scd plan admit to medicine for pain management Plan discussed with: Patient Date of Service: March 06, 2025 Billing Provider: BRENDEN MARTINEZ DNP Common Visit Codes: [id number] INP/OBS CARE (HIGH) BRENDEN MARTINEZ DNP March 06, 2025 13:24
[2025-03-06] MEDS ORDERED: NITROGLYCERIN 0.4 MG SL TAB SL PRN (14:30)
[2025-03-06] MEDS: SODIUM CHLORIDE 0.9% 1,000 ML IV SCH (14:30)
[2025-03-06 14:48] LABS: Urine Bacteria FEW /hpf (None Seen); Urine Blood Negative /uL (Negative); Urine Clarity Clear (Clear); Urine Color Colorless (Yellow); Urine Protein, UAD Negative (Negative); Urine Specific Gravity 1.005 (1.001-1.035); Urine Squamous Epithelial Cell FEW /hpf (<5); Urine Urobilinogen Normal (Negative); Urine WBC 1 /HPF (0-5); Urine pH 6.5 (5.0-9.0)
[2025-03-06 15:37] VITALS: PULSE 54; RESP 12; O2SAT 99
[2025-03-06] MEDS: MORPHINE SULFATE INJ 2 MG/ml SYRG IV PRN (18:01)
[2025-03-06 21:07] VITALS: BP 115/74; PULSE 75; RESP 18; TEMP 97.9; O2SAT 100
[2025-03-06] MEDS ORDERED: PATIENTS OWN MEDICATION (Lamotrigine (Lamictal) 1 TAB) PO SCH (22:00)
[2025-03-06] MEDS: TOPIRAMATE 100 MG TAB PO SCH (22:00)
[2025-03-06] MEDS: lamoTRIgine 25 MG TAB PO SCH (22:00)
[2025-03-06] MEDS: HYDROcodone-ACET 5/325MG TAB PO SCH (22:38)
[2025-03-07] VITALS (7 sets, daily range): BP systolic 91–123; BP diastolic 54–79; PULSE 56–78; RESP 14–18; TEMP 97.6–99.4; O2SAT 96–99
[2025-03-07 06:46] LABS: Basophils # (auto) 0 10 ^3/uL (0-0.2); Basophils % (auto) 0.2 % (0.0-2.0); Eosinophils # (auto) 0.2 10 ^3/uL (0-0.8); Eosinophils % (auto) 3.9 % (0.0-7.0); Hemoglobin 13.3 g/dL (12.2-16.2); Lymphocytes # (auto) 2.7 10 ^3/uL (0.4-5.4); Lymphocytes % (auto) 45.2 % (10.0-50.0); Mean Corpuscular Hemoglobin 32.9 pg (28.0-32.0); Monocytes # (auto) 0.4 10 ^3/uL (0-1.3); Monocytes % (auto) 7.2 % (0.0-12.0); Neutrophils # (auto) 2.6 10 ^3/uL (1.6-8.6); Neutrophils % (auto) 43.5 % (37.0-80.0); Nucleated Red Blood Cells % 0.1 %; Platelet Count (auto) 215 10^3/uL (140-450); Red Blood Cells 4.04 10^6/uL (4.0-5.20); Red Cell Distribution Width 12.8 % (11.8-14.3)
[2025-03-07 07:00] LABS: Alanine Aminotransferase 14 U/L (7-40); Alkaline Phosphatase 75 U/L (46-116); Anion Gap 7 (5-15); BUN/Creatinine Ratio 11.8 (10.0-20.0); Calcium 9.1 mg/dL (8.7-10.4); Carbon Dioxide 24 mmol/L (20-31); Glucose 102 mg/dL (74-106); Potassium 3.8 mmol/L (3.5-5.1); Sodium 142 mmol/L (136-145); Total Protein 6.3 g/dL (5.7-8.2)
[2025-03-07 07:01] LABS: Bilirubin, Total 0.3 mg/dL (0.2-1.0)
[2025-03-07 07:07] LABS: Aspartate Aminotransferase 11 U/L (13-40); Blood Urea Nitrogen 8 mg/dL (9-23); Chloride 111 mmol/L (98-107)
[2025-03-07] MEDS ORDERED: PATIENTS OWN MEDICATION (Folic Acid 1 MG) PO SCH (10:00)
[2025-03-07] MEDS ORDERED: CHOLECALCIFEROL 50 MCG PO SCH (10:00)
[2025-03-07] MEDS ORDERED: PATIENTS OWN MEDICATION (Magnesium Oxide 1 TAB) PO SCH (10:00)
[2025-03-07] MEDS ORDERED: RIMEGEPANT SULFATE 75 MG PO PRN (10:00)
[2025-03-07] MEDS: CHOLECALCIFEROL (VITD3) 1,000UNIT=25mCg TAB PO SCH (11:00)
[2025-03-07] MEDS: MAGNESIUM OXIDE 400 MG TAB PO SCH (11:01)
[2025-03-07] MEDS: ONDANSETRON HCL 4 MG/2 ML VIAL IV PRN (11:06)
[2025-03-07] MEDS: FOLIC ACID 1 MG TAB PO SCH (12:31)
--- NOTE | 2025-03-07 15:41 | DVHPN2 ---
Subjective Patient reports that her posterior lobe headache has improved. Continues to have nausea. Reviewed: Care Plan, H&P, Labs, Medications Changes from previous H/P or p: No Changes General: Per HPI Eyes: No Pain, No Vision change, No Conjunctivae inflammation, No Eyelid inflammation, No Other, No Redness ENT: No Ear pain, No Ear discharge, No Nose pain, No Nose discharge, No Nose congestion, No Mouth pain, No Mouth swelling, No Throat pain, No Throat swelling, No Other Cardiovascular: No Chest Pain, No Palpitations, No Orthopnea, No Paroxysmal Noc. Dyspnea, No Edema, No Lt Headedness, No Other Respiratory: No Cough, No Dry, No Shortness of breath, No SOB with excertion, No Wheezing, No Hemoptysis, No Pleuritic Pain, No Sputum, No Other Gastrointestinal: Nausea, Vomiting; No Abdominal Pain, No Diarrhea, No Constipation, No Melena, No Hematochezia, No Other Genitourinary: No Dysuria, No Frequency, No Incontinence, No Hematuria, No Retention, No Other Musculoskeletal: No other, No neck pain, No shoulder pain, No arm pain, No back pain, No hand pain, No leg pain, No foot pain Skin: No Rash, No Lesions, No Jaundice, No Bruising, No Other Objective Vitals Vital Signs Date Time Temp Pulse Resp B/P (MAP) Pulse Ox O2 Delivery O2 Flow Rate FiO2 03/07/25 13:20 69 16 99/66 03/07/25 12:50 98.5 96 98.5 03/06/25 15:37 Room Air* 0 21 Intake/Output Intake and Output 03/07/25 07:00 Intake Total 1320 ml Balance 1320 ml Intake Oral 480 ml IV Total 840 ml # Voids 2 General Appearance: Alert, Oriented X3, Cooperative, mild distress HEENT: Atraumatic, PERRLA Lungs: Clear to auscultation, Normal air movement Cardiovascular: Normal S1, Normal S2 Abdomen: Normal bowel sounds, Soft, No tenderness, No hepatospenomegaly, No masses Musculoskeletal: Normal sensory function, Normal motor function Extremities: Normal pulses Skin: Dry, Intact Psych/Mental Status: Mental status NL, Mood NL Medications Current Medications Medications Dose Ordered Sig/Marin Route Start Time Stop Time Status Last Admin Dose Admin Acetaminophen/ Hydrocodone Bitart 1 tab Q8HR PO 03/06/25 22:00 03/07/25 07:01 1 TAB Topiramate 100 mg HS PO 03/06/25 22:00 Patient Own Medication 50 mcg DAILY PO 03/07/25 10:00 UNV Patient Own Medication 1 tab DAILY PO 03/07/25 10:00 03/07/25 12:32 1 TAB Patient Own Medication 1 mg DAILY PO 03/07/25 10:00 UNV Patient Own Medication 1 tab BID PO 03/06/25 22:00 UNV Patient Own Medication 1 tab DAILY PO 03/07/25 10:00 UNV Patient Own Medication 75 mg DAILY PRN PO 03/07/25 10:00 Ondansetron HCl 4 mg Q4HP PRN IV 03/06/25 14:30 03/07/25 11:06 4 MG Docusate Sodium 100 mg BIDPRN PRN PO 03/06/25 14:30 Morphine Sulfate 2 mg Q4HPRN PRN IV 03/06/25 14:30 03/07/25 12:50 2 MG Nitroglycerin 0.4 mg Q5MINP PRN SL 03/06/25 14:30 Cholecalciferol 2,000 unit DAILY PO 03/07/25 10:00 03/07/25 11:00 2,000 UNIT Folic Acid 1 mg DAILY PO 03/07/25 10:00 03/07/25 12:31 1 MG Lamotrigine 25 mg BID PO 03/06/25 22:00 Magnesium Oxide 400 mg DAILY PO 03/07/25 10:00 03/07/25 11:01 400 MG Patient Own Medication 1 tab DAILY PO 03/07/25 12:24 03/07/25 12:32 1 TAB Patient Own Medication 1 tab HS PO 03/07/25 22:00 Laboratory Results Laboratory Tests 03/07/25 05:50 Chemistry Test 03/07/25 05:50 Albumin 4.0 g/dL (3.2-4.8) Calcium Level 9.1 mg/dL (8.7-10.4) Total Protein 6.3 g/dL (5.7-8.2) LFT Test 03/07/25 05:50 Alanine Aminotransferase (ALT) 14 U/L (7-40) Alkaline Phosphatase 75 U/L (46-116) Aspartate Amino Transferase (AST) 11 U/L (13-40) L Total Bilirubin 0.3 mg/dL (0.2-1.0) Urinalysis Test 03/06/25 13:29 Urine Color Colorless (Yellow) Urine Clarity Clear (Clear) Urine pH 6.5 (5.0-9.0) Urine Specific [place] 1.005 (1.001-1.035) Urine Protein Negative (Negative) Urine Ketones Negative (Negative) Urine Blood Negative /uL (Negative) Urine Nitrite Negative (Negative) Urine Bilirubin Negative (Negative) Urine Urobilinogen Normal mg/dL (Negative) Urine Leukocyte Esterase Negative /uL (Negative) Urine RBC <1 /hpf (0 - 4) Urine Microscopic WBC 1 /HPF (0-5) Urine Squamous Epithelial Cells Few /hpf (<5) Urine Bacteria Few /hpf (None Seen) H Urine Glucose Normal mg/dL (Normal) Labs and/or images reviewed: Labs reviewed by me, Image(s) reviewed by me Assessment/Plan Assessment/Plan Impression: -probable migraine headache -subarachnoid cyst -chronic pain syndrome with chronic pain management -seizure disorder Plan: -continue home antiepileptics -stop IV hydration -continue pain management with [place] -repeat labs in a.m. -reassess for discharge in a.m. Total time spent with patient discussing and formulating plan of care: 35 minutes. This medical document was created using an electronic medical record system with [employer] dictation system. Although this document has been carefully reviewed, there may still be some phonetic and typographical errors. These areas are purely typographical due to imperfections of the software programs, and do not reflect any compromise in the patient's medical care. Plan discussed with: Patient, Other (RN) Date of Service: March 07, 2025 Billing Provider: SHANNA RED NP Common Visit Codes: [id number] INP/OBS CARE(HIGH) SHANNA RED NP March 07, 2025 15:41
[2025-03-07] MEDS ORDERED: BISA-65 PO (16:37)
[2025-03-07] MEDS ORDERED: FREM225I2 (16:38)
[2025-03-07 17:58] LABS: Chloride 105 mmol/L (98-107); Potassium 4.2 mmol/L (3.5-5.1); Sodium 140 mmol/L (136-145)
[2025-03-07 17:59] LABS: Anion Gap 6 (5-15); Carbon Dioxide 29 mmol/L (20-31)
[2025-03-07 18:00] LABS: Calcium 9.6 mg/dL (8.7-10.4)
[2025-03-07 18:04] LABS: BUN/Creatinine Ratio 10.5 (10.0-20.0); Glucose 85 mg/dL (74-106)
[2025-03-07 18:20] LABS: Blood Urea Nitrogen 8 mg/dL (9-23)
[2025-03-07] MEDS: DOCUSATE SOD 100 MG CAP PO PRN (23:08)
[2025-03-08 01:00] VITALS: BP 112/53; PULSE 65; RESP 16; TEMP 99.2; O2SAT 96
[2025-03-08] MEDS ORDERED: LORazepam 2MG/ML-1ML VIAL IV PRN (01:15)
[2025-03-08 05:00] VITALS: BP 103/63; PULSE 69; RESP 18; TEMP 98.7; O2SAT 97
[2025-03-08 08:00] VITALS: RESP 18; O2SAT 98
[2025-03-08 09:00] VITALS: BP 95/61; PULSE 55; RESP 17; TEMP 98.2; O2SAT 100
[2025-03-08 13:39] VITALS: BP 110/63; PULSE 74; RESP 18; TEMP 36.8; O2SAT 96
--- NOTE | 2025-03-08 13:40 | DVHDS2 ---
Discharge Summary Date of Admission March 06, 2025 at 14:16 Date of Discharge: March 08, 2025 Admitting Diagnosis Headache Labs/Diagnostic Data: Laboratory Results Test 03/07/25 17:30 03/07/25 05:50 03/06/25 13:29 Sodium Level 140 mmol/L (136-145) Potassium Level 4.2 mmol/L (3.5-5.1) Chloride Level 105 mmol/L (98-107) Carbon Dioxide Level 29 mmol/L (20-31) Anion Gap 6 (5-15) Blood Urea Nitrogen 8 mg/dL (9-23) Creatinine 0.76 mg/dL (0.550-1.02) Glomerular Filtration Rate Calc 103 mL/min (>90) BUN/Creatinine Ratio 10.5 (10.0-20.0) Serum Glucose 85 mg/dL (74-106) Calcium Level 9.6 mg/dL (8.7-10.4) White Blood Count 6.0 10^3/uL (4.4-10.8) Red Blood Count 4.04 10^6/uL (4.0-5.20) Hemoglobin 13.3 g/dL (12.2-16.2) Hematocrit 38.0 % (36.0-46.0) Mean Corpuscular Volume 94.0 fL (80.0-100.0) Mean Corpuscular Hemoglobin 32.9 pg (28.0-32.0) Mean Corpuscular Hemoglobin Concent 35.0 g/dL (32.0-36.0) Red Cell Distribution Width 12.8 % (11.8-14.3) Platelet Count 215 10^3/uL (140-450) Mean Platelet Volume 7.8 fL (6.9-10.8) Neutrophils (%) (Auto) 43.5 % (37.0-80.0) Lymphocytes (%) (Auto) 45.2 % (10.0-50.0) Monocytes (%) (Auto) 7.2 % (0.0-12.0) Eosinophils (%) (Auto) 3.9 % (0.0-7.0) Basophils (%) (Auto) 0.2 % (0.0-2.0) Neutrophils # (Auto) 2.6 10 ^3/uL (1.6-8.6) Lymphocytes # (Auto) 2.7 10 ^3/uL (0.4-5.4) Monocytes # (Auto) 0.4 10 ^3/uL (0-1.3) Eosinophils # (Auto) 0.2 10 ^3/uL (0-0.8) Basophils # (Auto) 0 10 ^3/uL (0-0.2) Nucleated Red Blood Cells 0.1 % Total Bilirubin 0.3 mg/dL (0.2-1.0) Aspartate Amino Transferase (AST) 11 U/L (13-40) Alanine Aminotransferase (ALT) 14 U/L (7-40) Alkaline Phosphatase 75 U/L (46-116) Total Protein 6.3 g/dL (5.7-8.2) Albumin 4.0 g/dL (3.2-4.8) Urine Color Colorless (Yellow) Urine Clarity Clear (Clear) Urine pH 6.5 (5.0-9.0) Urine Specific [place] 1.005 (1.001-1.035) Urine Protein Negative (Negative) Urine Ketones Negative (Negative) Urine Blood Negative /uL (Negative) Urine Nitrite Negative (Negative) Urine Bilirubin Negative (Negative) Urine Urobilinogen Normal mg/dL (Negative) Urine Leukocyte Esterase Negative /uL (Negative) Urine RBC <1 /hpf (0 - 4) Urine Microscopic WBC 1 /HPF (0-5) Urine Squamous Epithelial Cells Few /hpf (<5) Urine Bacteria Few /hpf (None Seen) Urine Glucose Normal mg/dL (Normal) Other Laboratory Tests 03/07/25 17:30 03/07/25 05:50 Brief Hx & Hospital Course: History of Present Illness 39-year-old female past medical history seizures last seizures February 17, 2025 she was seen here at our hospital at that time depression 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 Patient states she had some vomiting nausea with the pain is like a throbbing pain in the feels like the head is going to explode she denies any fever no recent fall or trauma she does state she had some dizziness. It appears patient was seen here February 22 for acute breakthrough seizure and she has been she left AMA. Patient states she has been taking her meds for her seizures no recent seizure no chest pain when evaluating patient's labs and imaging looks like normal saline was given CBC was unremarkable BNP unremarkable CT scan of the brain shows no change in his arachnoid cyst otherwise unremarkable. With these findings we will admit for pain management for acute migraine headache. Course of hospitalization: Patient was given aggressive IV hydration, pain management, and reestablishment of her home medications for seizures. Patient reassessed today, with her symptoms resolving. Patient will be discharged home as instructed to follow up with her neurologist in the next 1-2 weeks. All questions answered. Physical examination General: Alert and Oriented x3. No acute distress. Well-nourished. Eyes: EOMI. Anicteric. HENT: Moist mucous membranes. Lungs: Clear to auscultation bilaterally. No accessory muscle use. Cardiovascular: Regular rate and rhythm. No murmur. No JVD. Abdomen: Soft, non-tender and non-distended. No palpable masses. Extremities: No edema. Non-tender. Skin: No rashes or lesions. Warm. Neurologic: No focal neurological deficits. CN II-XII grossly intact, but not individually tested. Psychiatric: Cooperative. Appropriate mood and affect. Total time spent with patient discussing and formulating plan of care: 35 minutes. This medical document was created using an electronic medical record system with [employer] dictation system. Although this document has been carefully reviewed, there may still be some phonetic and typographical errors. These areas are purely typographical due to imperfections of the software programs, and do not reflect any compromise in the patient's medical care. Condition at Discharge: Fair Final Diagnosis/Problems List Migraine Headache with Intractable Nausea and Vomiting Secondary diagnosis: -probable migraine headache -subarachnoid cyst -chronic pain syndrome with chronic pain management -seizure disorder Discharge Disposition: Home Discharge Instruct/Medications Diet: Regular Activity: See Comment Follow Up/Referral: neurology in 1-2 weeks Medications: Resume all home Medications 36 Discharge Statement: "Patient was advised to return to the ER or call 911 if any headaches, dizziness, shortness of breath, chest pain, abdominal pain, bleeding, fevers, or worsening of medical condition. Patient was counseled about treatment plan, medications, possible side effects, patientverbalized understanding. All questions were answered to the best of my ability. This discharge took greater then 30 minutes in planning, reviewing documentation, counseling the patient, and discussing with other team members." ASSESSMENT ASSESSMENT Assessment Migraine Headache with Intractable Nausea and Vomiting Date of Service: March 08, 2025 Billing Provider: SHANNA RED NP Common Visit Codes: 01055-FTE/OBS DISCH DAY >30min SHANNA RED NP March 08, 2025 13:40
== END 2025-03-08 13:55 | disposition home or self-care (01) | DRG 54 ==
LOC: EDBD 11:09 → ER 11:13 → OVERFLOW 14:16 → UNDODISIN 03-07 14:49 → EAST 03-07 17:02
PROVIDERS: ADMIT Nurse Practitioner Acute Care; ATTEND Nurse Practitioner Acute Care
DX: G43.909 Migraine, unspecified, not intractable, without status migrainosus (principal); G40.909 Epilepsy, unspecified, not intractable, without status epilepticus; G93.0 Cerebral cysts; G89.4 Chronic pain syndrome; Z98.891 History of uterine scar from previous surgery
CPT/HCPCS: 36415; 70450; 80048; 80053; 81001; 85025; 96360; G0378; J2405